=== PATIENT | male | born 1965 | race Caucasian/White ===

== ENCOUNTER 2021-06-17 15:15 | Inpatient (IN) | payer OTHER ==
[~2021-06-17] VITALS: Ht 193 cm; Wt 80.3 kg
[2021-06-17] MEDS ORDERED: CELEXA40 M1 PO (15:52)
[2021-06-17 16:06] LABS: BASOPHILS ABSOLUTE AUTO 0.08 K/mm3 (0.00-0.23); BASOPHILS PERCENT AUTO 0 % (0-2); EOSINOPHILS ABSOLUTE AUTO 0.01 K/mm3 (0.00-0.68); EOSINOPHILS PERCENT AUTO 0 % (0-6); Hematocrit 47.8 % (37.0-53.0); Hemoglobin 15.7 g/dL (13.5-17.5); IMMATURE GRAN ABSOLUTE AUTO 0.29 K/mm3 (0.00-0.10); IMMATURE GRAN PERCENT AUTO 1 % (0-1); LYMPHOCYTES ABSOLUTE AUTO 1.17 K/mm3 (0.84-5.20); LYMPHOCYTES PERCENT AUTO 6 % (21-46); MONOCYTES ABSOLUTE AUTO 1.41 K/mm3 (0.16-1.47); MONOCYTES PERCENT AUTO 7 % (4-13); Mean Corpuscular HGB Conc 32.8 g/dL (31.5-36.5); Mean Corpuscular Volume 79 fL (80-100); Mean Platelet Volume 10.7 fL (9.1-12.4); NEUTROPHILS ABSOLUTE AUTO 17.72 K/mm3 (1.96-9.15); NEUTROPHILS PERCENT AUTO 86 % (41-73); Platelet Count 364 K/mm3 (150-400); RDW Coefficient Variation 12.8 % (11.7-14.2); RDW Standard Deviation 36.1 fL (35.1-46.3); Red Blood Cell Count 6.03 M/mm3 (4.30-5.90); White Blood Cell Count 20.68 K/mm3 (4.00-11.30)
[2021-06-17 16:17] LABS: Alanine Aminotransfer (ALT/SGP 62 U/L (12-78); Albumin/Globulin Ratio 0.7 (0.8-1.8); Alk Phos 130 U/L (50-136); Anion Gap 6 mmol/L (6-16); Aspartate Aminotrans (AST/SGOT 27 U/L (12-37); Blood Urea Nitrogen 18 mg/dL (8-24); Bun/Creatinine Ratio 19.7 (12.0-20.0); CO2, Blood 26 mmol/L (21-32); Calcium, Blood 9.3 mg/dL (8.5-10.1); Chloride, Blood 100 mmol/L (98-108); Creatinine, Blood 0.91 mg/dL (0.60-1.20); Globulin, Blood 4.6 g/dL (2.2-4.0); Glomerular Filtration Rate >60 (60-); Glucose, Blood 117 mg/dL (70-99); Potassium, Blood 4.2 mmol/L (3.5-5.5); Sodium, Blood 132 mmol/L (136-145); Total Protein, Blood 7.6 g/dL (6.4-8.2)
--- NOTE | 2021-06-17 18:24 | NUR ---
ARRIVAL TO UNIT PT ARRIVED TO UNIT AT APPROX 1815. NGT IN PLACED CONNECTED TO LOW INT SUCTION. GREEN YELLOW OUTPUT IN TUBE. PATENT AND DRAINING. CONNECTED TO IV FLUIDS AT THIS TIME. PT DENIES NAUSEA AND DENIES PAIN. REPORTS CURRENTLY TOLERABLE. STATES PAIN LOCALIZED TO RLQ. PT REPORTS VERY SMALL BOWEL MOVEMENT YESTERDAY AND LAST "NORMAL" BOWEL MOVEMENT 11 GONZALEZ AGO. BOWEL SOUNDS HYPOACTIVE. PT AWARE OF NPO STATUS, PLAN FOR DRAIN PLACEMENT TOMORROW.
--- NOTE | 2021-06-18 02:21 | NUR ---
SHIFT SUMMARY: PT. AOX4, DENIES PAIN & REFUSED PAIN MEDICINE. SCDs ON, NGT TO L NARE TO LOW INTERMITTENT SUCTION WITH YELLOWISH OUTPUT. AMBULATED TO BATHROOM TO URINATE ON SBA WITHOUT PROBLEMS. ABLE TO MAKE NEEDS KNOWN, USES CALL LIGHT. BED ALARM ON. NO ACUTE CHANGES NOTED, WILL CONTINUE TO MONITOR.
[2021-06-18 04:57] LABS: Influenza A, PCR NEGATIVE (NEGATIVE); Influenza B, PCR NEGATIVE (NEGATIVE); Resp Syncytial Virus, PCR NEGATIVE (NEGATIVE)
[2021-06-18 05:16] LABS: SARS-Cov-2 (COVID-19) PCR, MMC POSITIVE (NEGATIVE)
[2021-06-18 05:23] LABS: BASOPHILS ABSOLUTE AUTO 0.04 K/mm3 (0.00-0.23); BASOPHILS PERCENT AUTO 0 % (0-2); EOSINOPHILS ABSOLUTE AUTO 0.09 K/mm3 (0.00-0.68); EOSINOPHILS PERCENT AUTO 1 % (0-6); Hematocrit 39.1 % (37.0-53.0); Hemoglobin 12.8 g/dL (13.5-17.5); IMMATURE GRAN ABSOLUTE AUTO 0.18 K/mm3 (0.00-0.10); IMMATURE GRAN PERCENT AUTO 1 % (0-1); LYMPHOCYTES ABSOLUTE AUTO 1.31 K/mm3 (0.84-5.20); LYMPHOCYTES PERCENT AUTO 9 % (21-46); MONOCYTES ABSOLUTE AUTO 1.03 K/mm3 (0.16-1.47); MONOCYTES PERCENT AUTO 7 % (4-13); Mean Corpuscular HGB 26.2 pg (26.0-34.0); Mean Corpuscular HGB Conc 32.7 g/dL (31.5-36.5); Mean Corpuscular Volume 80 fL (80-100); Mean Platelet Volume 10.6 fL (9.1-12.4); NEUTROPHILS ABSOLUTE AUTO 11.35 K/mm3 (1.96-9.15); NEUTROPHILS PERCENT AUTO 81 % (41-73); Platelet Count 295 K/mm3 (150-400); RDW Standard Deviation 37.3 fL (35.1-46.3); Red Blood Cell Count 4.89 M/mm3 (4.30-5.90)
[2021-06-18 05:27] LABS: International Normalized Ratio 1.13; Prothrombin Time Results 11.8 Sec (9.7-11.5)
[2021-06-18 05:39] LABS: Anion Gap 5 mmol/L (6-16); Blood Urea Nitrogen 19 mg/dL (8-24); Bun/Creatinine Ratio 21.4 (12.0-20.0); CO2, Blood 29 mmol/L (21-32); Calcium, Blood 8.7 mg/dL (8.5-10.1); Chloride, Blood 105 mmol/L (98-108); Creatinine, Blood 0.89 mg/dL (0.60-1.20); Glomerular Filtration Rate >60 (60-); Glucose, Blood 109 mg/dL (70-99); Potassium, Blood 4.3 mmol/L (3.5-5.5); Sodium, Blood 139 mmol/L (136-145)
--- NOTE | 2021-06-18 05:50 | NUR ---
ISOLATION PRECAUTION INITIATED RELATED TO (+) COVID TEST RESULT.
--- NOTE | 2021-06-18 10:17 | NUR ---
REPORT GIVEN AND CARE TURNED OVER TO CARMEN Sam RN.
--- NOTE | 2021-06-19 02:09 | NUR ---
SHIFT SUMMARY: PT. AOX4, DENIED PAIN.SCDs ON, NGT TO L NARE TO LIS WITH BROWNISH OUTPUT. PT. COOPERATIVE WITH CARE, ABLE TO MAKE NEEDS KNOWN. REPOSITIONS SELF. VOIDING IN URINAL.NO ACUTE CHANGES NOTED, WILL CONTINUE TO MONITOR.
[2021-06-19 05:53] LABS: Magnesium, Blood 2.5 mg/dL (1.6-2.4); Phosphorus, Blood 3.5 mg/dL (2.5-4.9); Triglycerides 109 mg/dL (30-160)
--- NOTE | 2021-06-19 16:20 | NUR ---
SHIFT SUMMARY PT A/O X4; PLEASANT AND COOPERATIVE WITH CARE. PT REPORTS FEELING MUCH BETTER TODAY AND HIS ABD IS SOFT AND NO LONGER DISTENDED. PT HAD A BM AND HAS NO NAUSEA OR PAIN. NG TUBE CLAMPED AND PT STARTED ON WATER AND ICE CHIPS, WHICH HE IS TOLERATING WELL. PPN RUNNING AND CONTINUING TO RECEIVE IV ANTIBIOTICS. VSS. WILL REPORT TO EMY NUNEZ.
[2021-06-20 04:57] LABS: BASOPHILS ABSOLUTE AUTO 0.05 K/mm3 (0.00-0.23); BASOPHILS PERCENT AUTO 1 % (0-2); EOSINOPHILS ABSOLUTE AUTO 0.18 K/mm3 (0.00-0.68); EOSINOPHILS PERCENT AUTO 2 % (0-6); Hematocrit 42.8 % (37.0-53.0); Hemoglobin 13.8 g/dL (13.5-17.5); IMMATURE GRAN ABSOLUTE AUTO 0.14 K/mm3 (0.00-0.10); IMMATURE GRAN PERCENT AUTO 2 % (0-1); LYMPHOCYTES ABSOLUTE AUTO 1.49 K/mm3 (0.84-5.20); LYMPHOCYTES PERCENT AUTO 17 % (21-46); MONOCYTES ABSOLUTE AUTO 0.65 K/mm3 (0.16-1.47); MONOCYTES PERCENT AUTO 7 % (4-13); Mean Corpuscular HGB Conc 32.2 g/dL (31.5-36.5); Mean Corpuscular Volume 81 fL (80-100); Mean Platelet Volume 10.4 fL (9.1-12.4); NEUTROPHILS PERCENT AUTO 72 % (41-73); Platelet Count 356 K/mm3 (150-400); RDW Coefficient Variation 12.9 % (11.7-14.2); RDW Standard Deviation 37.6 fL (35.1-46.3); Red Blood Cell Count 5.31 M/mm3 (4.30-5.90); White Blood Cell Count 8.81 K/mm3 (4.00-11.30)
[2021-06-20 05:21] LABS: Alanine Aminotransfer (ALT/SGP 39 U/L (12-78); Albumin, Blood 2.6 g/dL (3.4-5.0); Albumin/Globulin Ratio 0.7 (0.8-1.8); Alk Phos 76 U/L (50-136); Anion Gap 4 mmol/L (6-16); Aspartate Aminotrans (AST/SGOT 18 U/L (12-37); Bilirubin, Total 0.4 mg/dL (0.1-1.0); Blood Urea Nitrogen 12 mg/dL (8-24); Bun/Creatinine Ratio 14.3 (12.0-20.0); CO2, Blood 31 mmol/L (21-32); Calcium, Blood 9.1 mg/dL (8.5-10.1); Chloride, Blood 104 mmol/L (98-108); Creatinine, Blood 0.84 mg/dL (0.60-1.20); Globulin, Blood 3.9 g/dL (2.2-4.0); Glomerular Filtration Rate >60 (60-); Glucose, Blood 118 mg/dL (70-99); Magnesium, Blood 2.4 mg/dL (1.6-2.4); Phosphorus, Blood 3.5 mg/dL (2.5-4.9); Potassium, Blood 3.9 mmol/L (3.5-5.5); Sodium, Blood 139 mmol/L (136-145); Total Protein, Blood 6.5 g/dL (6.4-8.2)
--- NOTE | 2021-06-20 09:58 | NUR ---
SUMMARY PT HOPING TO D/C NG TODAY. NO C/O NAUSEA .
--- NOTE | 2021-06-20 19:38 | NUR ---
SHIFT SUMMARY PATIENT ALERT AND ORIENTED THROUGHOUT SHIFT. INDEPENDENT IN ROOM. NG TUBE REMOVED BY DR SNELL THIS AM. TOLERATING CLEAR LIQUIDS THIS SHIFT. VOIDING WELL. LOOSE BM THIS SHIFT. ROUTINE ABX. DENIES PAIN. PLAN TO DISCHARGE HOME 06/21/21 IF TOLERATING REGULAR DIET. REPORT GIVEN TO ABSEILING INSTRUCTOR RN.
[2021-06-21 04:20] LABS: Magnesium, Blood 2.4 mg/dL (1.6-2.4); Phosphorus, Blood 4.2 mg/dL (2.5-4.9)
--- NOTE | 2021-06-21 04:22 | NUR ---
PT IS A&OX4, VSS, INDEPENDENT IN ROOM AND IS ABLE TO MAKE NEEDS KNOWN. PT HERE FROM D/T CT SHOWING PERFORATED APPENDICITS W/ LARGE ABSCESS. PT HAD NG TUBE D/C'D BY DOCTOR ON PREVIOUS SHIFT. PT RECEIVING IV ZOSYN Q6H. COVID POSITIVE BUT ASYMPTOMATIC. PLAN IT D/C IF ABLE TO TOLERATE GENERAL DIET. WILL CONTINUE TO MONITOR THIS PATIENT.
[2021-06-21] MEDS ORDERED: AMOX-CLAV 875-1 EAC1 PO (10:09)
[2021-06-21] MEDS ORDERED: VISBIOME 112.51 EACH PO (10:10)
--- NOTE | 2021-06-21 12:45 | NUR ---
DISCHARGE VSS ON RA, AMBULATING IN ROOM INDEPENDENTLY, TOLERATING REGULAR DIET WELL, DENIES N/V. DENIES ABD PAIN, ABD SOFT W/O DISTENTION. DISCHARGE INSTRUCTIONS DISCUSSED W/ PATIENT. RX SENT W/ PATIENT. PT REFUSED W/C, WALKED OUT W/ FAMILY MEMBER.
[2021-10-01] MEDS ORDERED: ALLEGRA ALLERG180 MG PO (09:36)
== END 2021-06-21 12:50 | disposition home or self-care (01) | DRG 371 ==
LOC: ER 15:15 → SURS 18:39
PROVIDERS: Emergency Medicine; ADMIT Surgery
PROC: 8E0ZXY6 Isolation (ICD-10-PCS; principal; 2021-06-18)
DX: K35.33 Acute appendicitis with perforation, localized peritonitis, and gangrene, with abscess (principal); U07.1 COVID-19; K56.609 Unspecified intestinal obstruction, unspecified as to partial versus complete obstruction; Z28.21 Immunization not carried out because of patient refusal; Z98.890 Other specified postprocedural states
CPT/HCPCS: 0241U; 36415; 74170; 74177; 80048; 80053; 83605; 83690; 83735; 84100; 84478; 85025; 85610; 87040; 96365; 96366; 96375; 96376; 99285-25; A9270; J1650; J2405; J2543; J7030; J7120; Q9967

== ENCOUNTER → 2021-06-17 | Outpatient (CLI) | payer OTHER ==
[~2021-06-17] MED LIST: CELEXA40 M1 PO
[2021-06-17 13:21] LABS: BASOPHILS ABSOLUTE AUTO 0.07 K/mm3 (0.00-0.23); BASOPHILS PERCENT AUTO 0 % (0-2); EOSINOPHILS PERCENT AUTO 0 % (0-6); Hematocrit 47.7 % (37.0-53.0); IMMATURE GRAN ABSOLUTE AUTO 0.34 K/mm3 (0.00-0.10); IMMATURE GRAN PERCENT AUTO 2 % (0-1); LYMPHOCYTES ABSOLUTE AUTO 0.95 K/mm3 (0.84-5.20); LYMPHOCYTES PERCENT AUTO 5 % (21-46); MONOCYTES ABSOLUTE AUTO 1.39 K/mm3 (0.16-1.47); MONOCYTES PERCENT AUTO 7 % (4-13); Mean Corpuscular HGB 26.4 pg (26.0-34.0); Mean Corpuscular HGB Conc 33.5 g/dL (31.5-36.5); Mean Corpuscular Volume 79 fL (80-100); Mean Platelet Volume 10.5 fL (9.1-12.4); NEUTROPHILS ABSOLUTE AUTO 16.12 K/mm3 (1.96-9.15); NEUTROPHILS PERCENT AUTO 85 % (41-73); Platelet Count 329 K/mm3 (150-400); RDW Standard Deviation 36.8 fL (35.1-46.3); Red Blood Cell Count 6.07 M/mm3 (4.30-5.90); White Blood Cell Count 18.87 K/mm3 (4.00-11.30)
[2021-06-17 13:32] LABS: Alanine Aminotransfer (ALT/SGP 69 U/L (12-78); Albumin, Blood 3.3 g/dL (3.4-5.0); Albumin/Globulin Ratio 0.7 (0.8-1.8); Alk Phos 139 U/L (40-126); Anion Gap 11 mmol/L (6-16); Aspartate Aminotrans (AST/SGOT 31 U/L (12-37); Bilirubin, Total 0.9 mg/dL (0.1-1.0); Blood Urea Nitrogen 17 mg/dL (8-24); CO2, Blood 29 mmol/L (21-32); Calcium, Blood 9.9 mg/dL (8.5-10.1); Chloride, Blood 96 mmol/L (98-108); Creatinine, Blood 1.13 mg/dL (0.60-1.20); Globulin, Blood 4.7 g/dL (2.2-4.0); Glomerular Filtration Rate >60 (60-); Glucose, Blood 121 mg/dL (70-99); Potassium, Blood 4.7 mmol/L (3.5-5.5); Sodium, Blood 136 mmol/L (136-145)
== END ==
LOC: LAB SHORT 13:17
PROVIDERS: Family Medicine
DX: R10.9 Unspecified abdominal pain (principal)
CPT/HCPCS: 80053; 83690; 85025

== ENCOUNTER 2021-09-04 08:23 | Day surgery (SDC) | payer OTHER ==
[~2021-09-04] VITALS: Ht 193 cm; Wt 82.6 kg
[~2021-09-04 08:23] MED LIST changes: +AMOX-CLAV 875-1 EAC1 PO; +VISBIOME 112.51 EACH PO
== END 2021-09-04 10:35 | disposition home or self-care (01) ==
LOC: ORSCSDS 08:23
PROVIDERS: Surgery
PROC: 0DJD8ZZ Inspection of Lower Intestinal Tract, Via Natural or Artificial Opening Endoscopic (ICD-10-PCS; principal; 2021-09-04 09:30)
DX: K62.5 Hemorrhage of anus and rectum (principal); K64.8 Other hemorrhoids
CPT/HCPCS: J2704

== ENCOUNTER 2021-10-14 07:42 | Day surgery (SDC) | payer OTHER ==
[~2021-10-14] VITALS: Ht 193 cm; Wt 82.7 kg
[~2021-10-14 07:42] MED LIST changes: +ALLEGRA ALLERG180 MG PO
--- NOTE | 2021-10-14 10:37 | NUR ---
Dressing to procedure site clean, dry, intact with no visible drainage, swelling, erythema or bruising noted.
--- NOTE | 2021-10-14 10:52 | NUR ---
PT TOLERATING PO FLUIDS
--- NOTE | 2021-10-14 11:01 | NUR ---
Discharge instructions reviewed with patient. Patient verbalizes understanding. Copy given to patient to take home.
--- NOTE | 2021-10-14 11:10 | NUR ---
Discharged via wheelchair to private car for ride home.
== END 2021-10-14 11:12 | disposition home or self-care (01) ==
LOC: ORSCMMR 07:42 → ORD 09:00 → ORSCMMR 11:12
PROVIDERS: Surgery
PROC: 0DTJ4ZZ Resection of Appendix, Percutaneous Endoscopic Approach (ICD-10-PCS; principal; 2021-10-14 09:00)
DX: K36 Other appendicitis (principal); Z79.899 Other long term (current) drug therapy
CPT/HCPCS: 88304; A9270; J0694; J1100; J2250; J2405; J2704; J2795; J3010; J7120